=== PATIENT | female | born 1985 | race Caucasian/White ===

== ENCOUNTER 2018-12-10 16:27 | Inpatient (IN) | payer MEDICAID ==
[2018-12-10] MEDS ORDERED: MISOPROSTOL 200 MCG TAB PR (20:00)
[2018-12-10] MEDS ORDERED: CARBOPROST 250 MCG INJ IM (20:00)
[2018-12-10] MEDS ORDERED: LIDOCAINE 1% (MPF) 30 ML INJ INJ (20:00)
[2018-12-10] MEDS ORDERED: METHYLERGONOVINE 0.2 MG INJ IM (20:00)
[2018-12-10] MEDS ORDERED: OXYTOCIN 30 UNITS/LR 500 ML IV (20:00)
[2018-12-10 21:21] LABS: ADD MAN DIFF? NO
[2018-12-10 21:25] LABS: WHITE BLOOD COUNT 7.7 10^3/ul (4.8-10.8)
[2018-12-10 21:25] LABS: BASOPHILS % 0.4 % (0.0-2.0); EOSINOPHILS % 0.3 % (0.0-7.0); HEMATOCRIT 35.4 % (37.0-47.0); HEMOGLOBIN 12.4 g/dl (12.0-16.0); LYMPHOCYTES # 2.4 10^3/ul (0.8-2.9); LYMPHOCYTES % 31.2 % (15.0-51.0); MEAN CORPUSCULAR HEMOGLOBIN 32.3 pg (29.0-33.0); MEAN CORPUSCULAR VOLUME 92.2 fl (82.0-101.0); MONOCYTE # 0.5 10^3/ul (0.3-0.9); MONOCYTES % 6.4 % (0.0-11.0); NEUTROPHIL # 4.7 10^3/ul (1.6-7.5); NEUTROPHILS % 60.9 % (39.0-77.0); PLATELET COUNT 154 10^3/UL (140-415); RED BLOOD COUNT 3.84 10^6/ul (4.20-5.40); RED CELL DISTRIBUTION WIDTH 12.1 % (11.5-14.5)
[2018-12-10] MEDS: LACTATED RINGER'S 1,000 ML IV (21:35)
[2018-12-10] MEDS: MISOPROSTOL 50 MCG CAPSULE PO (21:35)
[2018-12-10 21:44] LABS: INR 0.82; PARTIAL THROMBOPLASTIN TIME 30.7 Sec (23.0-35.0); PROTIME 11.4 Sec (11.9-14.9); PT RATIO 0.9
[2018-12-10 23:12] LABS: HEPATITIS B SURFACE ANTIGEN NEGATIVE (NEGATIVE)
[2018-12-11] MEDS: MISOPROSTOL 50 MCG CAPSULE PO ×4 (02:00→17:10)
[2018-12-11] MEDS: LACTATED RINGER'S 1,000 ML IV ×3 (05:21→18:49)
[2018-12-11 15:07] LABS: RAPID PLASMA REAGIN NONREACTIVE (NR)
[2018-12-12] MEDS: OXYTOCIN 30 UNITS/LR 500 ML IV ×4 (01:03→19:38)
[2018-12-12] MEDS: BUTORPHANOL 2 MG INJ IV (02:00)
[2018-12-12] MEDS: LACTATED RINGER'S 1,000 ML IV ×3 (02:01→10:08)
[2018-12-12] MEDS ORDERED: FENTAnyl 2MCG/ML-ROPIV 0.2% 100 ML (02:45)
[2018-12-12] MEDS: FENTAnyl 2MCG/ML-ROPIV 0.2% 100 ML BAG EPI ×2 (07:12→08:55)
[2018-12-12] MEDS ORDERED: EPHEDrine 25 MG/5 ML SYG IV (07:30)
[2018-12-12] MEDS ORDERED: NALOXONE (0.4 MG/ML) INJ IV (07:30)
[2018-12-12 13:36] LABS: CBV COHb 1.4 %; CBV Total Hemglobin 14.4 g/dl; Cord Blood Venous AADO2 58.5 mmHg; Cord Blood Venous pO2 35.2 mmHG (15.0-45.0); Fraction OxyHgb Cord Venous 78.8 %; MODE ROOM AIR; MetHgb Cord Venous 1.3 %; Sample Type CBV; Site CORD
[2018-12-12] MEDS: MINERAL OIL LIGHT 10 ML VIAL TOP (13:47)
[2018-12-12] MEDS: IBUPROFEN 600 MG TAB PO ×2 (14:37→18:00)
[2018-12-12] MEDS: CLINDAMYCIN 900 MG/D5W (PMX) 50 ML IVPB ×2 (14:50→22:40)
[2018-12-12] MEDS: GENTAMICIN 80 MG/NS (PMX) 50 ML IVPB ×2 (15:16→23:29)
[2018-12-12] MEDS ORDERED: SENNA/DOCUSATE NA (8.6MG/50MG) TAB PO (16:00)
[2018-12-12] MEDS ORDERED: DIBUCAINE 1% 30 GM OINT TOP (16:00)
[2018-12-12] MEDS ORDERED: MISOPROSTOL 200 MCG TAB PR (16:00)
[2018-12-12] MEDS ORDERED: MAGNESIUM HYDROXIDE 30ML CUP PO (16:00)
[2018-12-12] MEDS ORDERED: METHYLERGONOVINE 0.2 MG INJ IM (16:00)
[2018-12-12] MEDS ORDERED: NACL 0.9% 3 ML SYG IV (16:00)
[2018-12-12] MEDS ORDERED: CARBOPROST 250 MCG INJ IM (16:00)
[2018-12-12] MEDS ORDERED: METHYLERGONOVINE 0.2 MG TAB PO (16:00)
[2018-12-12] MEDS ORDERED: OXYTOCIN 30 UNITS/LR 500 ML IV (16:00)
[2018-12-12] MEDS: WITCH HAZEL/GLYCERIN PAD PR (18:08)
[2018-12-12] MEDS: LANOLIN HPA 1 PKT TOP (18:08)
[2018-12-12] MEDS: BENZOCAINE 20% 56 ML SPRAY TOP (18:08)
[2018-12-13] MEDS: IBUPROFEN 600 MG TAB PO ×5 (00:12→23:53)
[2018-12-13] MEDS: CLINDAMYCIN 900 MG/D5W (PMX) 50 ML IVPB (05:37)
[2018-12-13] MEDS: GENTAMICIN 80 MG/NS (PMX) 50 ML IVPB (06:44)
[2018-12-13 08:19] LABS: ADD MAN DIFF? NO
[2018-12-13 08:24] LABS: WHITE BLOOD COUNT 12.2 10^3/ul (4.8-10.8)
[2018-12-13 08:24] LABS: BASOPHILS % 0.2 % (0.0-2.0); EOSINOPHILS % 0.2 % (0.0-7.0); HEMATOCRIT 30.4 % (37.0-47.0); HEMOGLOBIN 10.8 g/dl (12.0-16.0); LYMPHOCYTES # 1.4 10^3/ul (0.8-2.9); LYMPHOCYTES % 11.6 % (15.0-51.0); MEAN CORPUSCULAR HGB CONC 35.5 g/dl (32.0-37.0); MEAN CORPUSCULAR VOLUME 90.2 fl (82.0-101.0); MEAN PLATELET VOLUME 11.5 fl (7.4-10.4); MONOCYTE # 0.6 10^3/ul (0.3-0.9); MONOCYTES % 4.6 % (0.0-11.0); NEUTROPHIL # 10.1 10^3/ul (1.6-7.5); NEUTROPHILS % 82.7 % (39.0-77.0); RED BLOOD COUNT 3.37 10^6/ul (4.20-5.40); RED CELL DISTRIBUTION WIDTH 12.4 % (11.5-14.5)
[2018-12-13 08:26] LABS: PLATELET COUNT 105 10^3/UL (140-415); POSITIVE DIFF @See below
[2018-12-13] MEDS ORDERED: DIPHENHYDRAMINE 25 MG CAP PO (17:30)
[2018-12-14] MEDS: IBUPROFEN 600 MG TAB PO ×2 (05:38→12:02)
[2018-12-14] MEDS: DIPHTH/TET/ACEL PERTUSS (ADULT) 0.5 ML VIAL IM* (12:03)
== END 2018-12-14 17:33 | disposition home or self-care (01) | DRG 805 ==
LOC: OBT 16:27 → PP1 12-12 15:30 → L-D 16:28 → OBT 19:50 → L-D 19:50
PROVIDERS: Obstetrics & Gynecology
PROC: 4A1HXCZ Monitoring of Products of Conception, Cardiac Rate, External Approach (ICD-10-PCS; 2018-12-11)
PROC: 0HQ9XZZ Repair Perineum Skin, External Approach (ICD-10-PCS; principal; 2018-12-12)
PROC: 10E0XZZ Delivery of Products of Conception, External Approach (ICD-10-PCS; 2018-12-12)
DX: O26.62 Liver and biliary tract disorders in childbirth (principal); K83.1 Obstruction of bile duct; Z37.0 Single live birth; O70.0 First degree perineal laceration during delivery; Z3A.37 37 weeks gestation of pregnancy
CPT/HCPCS: 36415; 62322; 76815; 76818; 82803; 85025; 85610; 85730; 86592; 86850; 86900; 86901; 87070; 87340; 88307; 90715